=== PATIENT | male | born 2000 | race Caucasian/White ===

== ENCOUNTER 2022-07-09 14:43 | Outpatient (CLI) | payer OTHER ==
[~2022-07-09 14:43] MED LIST: BUDESONIDE0.5 MG/2 M IH; MUCINEX DM1 TAB.SR . PO; NEBUSAL4 ML IH
== END 2022-07-09 14:56 | disposition home or self-care (01) ==
LOC: RAD 14:43
PROVIDERS: ATTEND Physical Medicine & Rehabilitation
DX: M54.2 Cervicalgia (principal); M54.6 Pain in thoracic spine